=== PATIENT | female | born 1955 | race American Indian/Alaskan Native ===

== ENCOUNTER 2019-01-25 12:10 | Emergency (ER) | payer MEDICARE, OTHER ==
[2019-01-25 12:31] VITALS: BP 135/72
--- NOTE | 2019-01-25 12:36 | Emergency Department Report ---
ED Recheck HPI - General Chief Complaint: Medical Clearance Stated Complaint: HYPERGLYCEMIA/HYPERTENSION Time Seen by Provider: 01/25/19 12:29 Source: patient Mode of arrival: Ambulatory Limitations: No Limitations - History of Present Illness Initial Comments: felt stressed after went to [facility] to see . She is here to get blood pressure and blood sugar check. She said she is feeling fine since she left [facility] but still wants BP/BG checked. denies cp,sob, dzziness or any other abnormal feelings. h/o HTN Diabetes MD Complaint: wound re-check, other (here for bp check and BG ) -: This morning Initial Visit For: other (for BG and sugar to check) Returns Today for: other (request bg and bp check) Symptoms Since Prior Visit: no new symptoms Context: other (felt stressed) Associated Symptoms: none Treatments Prior to Arrival: other (none) ED Review of Systems ROS: Stated complaint: HYPERGLYCEMIA/HYPERTENSION Other details as noted in HPI Constitutional: denies: chills ENT: denies: throat pain Respiratory: denies: cough, shortness of breath, wheezing Cardiovascular: denies: chest pain, palpitations, dyspnea on exertion, edema, syncope Gastrointestinal: denies: abdominal pain, nausea, vomiting, diarrhea Genitourinary: denies: urgency, dysuria, frequency, hematuria Musculoskeletal: denies: back pain, arthralgia Neurological: denies: headache, numbness, paresthesias, abnormal gait, vertigo ED Past Medical Hx - Past Medical History Previous Medical History?: Yes Hx Hypertension: Yes Hx Diabetes: Yes - Surgical History Past Surgical History?: No - Family History Family history: no significant - Social History Smoking Status: Never Smoker Substance Use Type: None ED Physical Exam - General Limitations: No Limitations General appearance: alert, in no apparent distress - Head Head exam: Present: atraumatic - Eye Eye exam: Present: normal appearance, PERRL, EOMI Pupils: Present: normal accommodation - ENT ENT exam: Present: normal exam - Neck Neck exam: Present: normal inspection - Respiratory Respiratory exam: Present: normal lung sounds bilaterally. Absent: respiratory distress, chest wall tenderness - Cardiovascular Cardiovascular Exam: Present: regular rate, normal rhythm, normal heart sounds - Extremities Exam Extremities exam: Present: normal inspection, full ROM - Back Exam Back exam: Present: normal inspection, full ROM - Neurological Exam Neurological exam: Present: alert, oriented X3, normal gait - Psychiatric Psychiatric exam: Present: normal affect, normal mood - Skin Skin exam: Present: warm, dry, intact, normal color ED Course Vital Signs 01/25/19 12:30 Temperature 98 F Pulse Rate 71 Respiratory 20 Rate Blood Pressure 135/72 O2 Sat by Pulse 98 Oximetry - Reevaluation(s) Reevaluation #1: 01/25/19 12:37 pt stable with nl bg and blood pressure ED Recheck MDM - Medical Decision Making Follow up with PCP in 2 days Critical care attestation.: If time is entered above; I have spent that time in minutes in the direct care of this critically ill patient, excluding procedure time. ED Disposition Clinical Impression: Normal blood glucose level, Normal blood pressure Disposition: DC- TO HOME OR SELFCARE Is pt being admited?: No Does the pt Need Aspirin: No Condition: Stable Instructions: Heart Healthy Diet (ED), How to Take a Blood Pressure (ED), How to Check Your Blood Sugar (ED) Additional Instructions: follow up with pcp in 2 days Referrals: [facility] [Outside] - 2-3 Days
== END 2019-01-25 13:49 | disposition home or self-care (01) ==
LOC: ED 12:10
DX: I10 Essential (primary) hypertension (principal); E11.9 Type 2 diabetes mellitus without complications
CPT/HCPCS: 82962; 99282